=== PATIENT | male | born 1960 | race Caucasian/White ===

== ENCOUNTER 2021-06-15 08:36 | Emergency (ER) | payer BC, OTHER ==
[2021-06-15] MEDS ORDERED: Sodium Chloride 0.9% 10 ML Syringe FLUSH PRN (08:55)
[2021-06-15] MEDS ORDERED: Aspirin 81 MG Tab.Chew PO ONE (08:56)
[2021-06-15] MEDS ORDERED: Nitroglycerin 0.4 MG Tab.SL SL ONE (08:56)
[2021-06-15] MEDS ORDERED: Heparin Sodium 5,000 Units/ML Vial IVPUSH ONE (08:57)
[2021-06-15] MEDS ORDERED: Heparin Sodium/0.45% NaCl 500 ML IV STA (08:57)
[2021-06-15] MEDS ORDERED: Sodium Chloride 0.9% 1,000 ML IV SCH (09:19)
[2021-06-15 09:48] LABS: PTT,PARTIAL THROMBOPLSTIN TIME 25.8 SEC (23.6-29.8)
[2021-06-15 09:51] LABS: ANION GAP 15.7 meq/L (7-15); CHLORIDE,CL 98 mmol/L (98-107); SODIUM,NA 134 mmol/L (136-145)
== END 2021-06-15 11:20 ==
LOC: LL.ED 08:36
DX: I21.9 Acute myocardial infarction, unspecified (principal); I24.9 Acute ischemic heart disease, unspecified
CPT/HCPCS: 36415; 71045; 80053; 83605; 83735; 83880; 84100; 84443; 84484; 85025; 85610; 85730; 87040; 87426; 93005; 93010; 96365; 96366; 99284; 99285-25; A9270-GY; J1644; J3490; J7030

== ENCOUNTER 2021-07-13 13:49 | Emergency (ER) | payer BC ==
[2021-07-13 14:42] LABS: ANION GAP 10.7 meq/L (7-15); CHLORIDE,CL 103 mmol/L (98-107); SODIUM,NA 138 mmol/L (136-145)
[2021-07-13] MEDS ORDERED: Morphine 2 MG/ML SYRINGE IVPUSH ONE ×2 (14:50→15:05)
[2021-07-13] MEDS: Sodium Chloride 0.9% 10 ML Syringe FLUSH PRN ×2 (15:00→15:08)
[2021-07-13] MEDS ORDERED: Nitroglycerin 0.4 MG Tab.SL SL PRN (15:18)
[2021-07-13] MEDS ORDERED: Heparin Sodium 5,000 Units/ML Vial IVPUSH ONE (15:21)
[2021-07-13] MEDS ORDERED: Heparin Sodium/0.45% NaCl 500 ML IV SCH (15:30)
== END 2021-07-13 16:18 ==
LOC: LL.ED 13:49
DX: I21.4 Non-ST elevation (NSTEMI) myocardial infarction (principal); M19.90 Unspecified osteoarthritis, unspecified site; E66.9 Obesity, unspecified; Z68.37 Body mass index [BMI] 37.0-37.9, adult; Z79.82 Long term (current) use of aspirin; Z79.899 Other long term (current) drug therapy; Z88.8 Allergy status to other drugs, medicaments and biological substances
CPT/HCPCS: 36415; 71045; 80053; 84484; 85025; 93005; 96365; 96375; 96376; 99284; 99285-25; J1644; J2270; J3490